=== PATIENT | male | born 1990 | race Caucasian/White ===

== ENCOUNTER → 2021-09-29 13:57 | Outpatient (BNVA) | payer MEDICAID, SELFPAY | PROVIDERS: Visit Provider Nurse Practitioner Family | DX: R19.7 Diarrhea, unspecified (principal); R11.2 Nausea with vomiting, unspecified; R10.9 Unspecified abdominal pain; E66.9 Obesity, unspecified; M54.41 Lumbago with sciatica, right side; M54.42 Lumbago with sciatica, left side; G89.29 Other chronic pain; L03.90 Cellulitis, unspecified; W54.0XXA Bitten by dog, initial encounter; S41.159A Open bite of unspecified upper arm, initial encounter | CPT/HCPCS: 80053; 80061; 82150; 83690 ==

== ENCOUNTER → 2021-10-28 12:08 | Outpatient (BNVA) | payer MEDICAID, SELFPAY | PROVIDERS: Visit Provider Nurse Practitioner Family | DX: J45.909 Unspecified asthma, uncomplicated (principal); R06.02 Shortness of breath | CPT/HCPCS: 71046 ==

== ENCOUNTER → 2021-11-05 13:32 | Outpatient (BNVA) | payer MEDICAID, SELFPAY | PROVIDERS: PCP Nurse Practitioner Family; Referring Provider Nurse Practitioner Family; Visit Provider Anesthesiology Pain Medicine | DX: G89.29 Other chronic pain (principal); M48.062 Spinal stenosis, lumbar region with neurogenic claudication; M54.41 Lumbago with sciatica, right side; M54.42 Lumbago with sciatica, left side; M51.36 Other intervertebral disc degeneration, lumbar region; M47.816 Spondylosis without myelopathy or radiculopathy, lumbar region; M79.605 Pain in left leg; F15.11 Other stimulant abuse, in remission; F17.200 Nicotine dependence, unspecified, uncomplicated | CPT/HCPCS: 99204 ==

== ENCOUNTER 2021-11-18 14:09 | Outpatient (CLI) | payer MEDICAID, SELFPAY ==
--- NOTE | 2021-11-18 14:18 | XR_ITS ---
WS: [id number] XR lumbar spine 2-3V* [id number] REASON FOR EXAM: LBP and sciatica FINDINGS: Decreased lordosis of the lumbar spine. No significant compression deformity or focal vertebral body lesion. Mild narrowing of the L1-L2 and L5-S1 disc spaces. No spondylolysis listhesis or spondylolysis. XR/XR lumbar spine 2-3V* [id number] IMPRESSION: Lumbar spine is relatively straight without the normal lordotic curve. Mild narrowing of the intervertebral disc spaces as above.
--- NOTE | 2021-11-18 14:18 | XR_ITS ---
WS: [id number] XR sacroiliac jts m 3V [id number] REASON FOR EXAM: sciatica FINDINGS: No fracture or focal bone lesion. The sacroiliac joints are well defined. There are no erosions, bridging, or fusion. XR/XR sacroiliac jts m 3V [id number] IMPRESSION: Normal sacroiliac joints.
== END 2021-11-18 14:10 | disposition home or self-care (01) ==
LOC: RAD 14:15
PROVIDERS: PCP Nurse Practitioner Family; Visit Provider Nurse Practitioner Family
DX: M54.41 Lumbago with sciatica, right side (principal); M54.42 Lumbago with sciatica, left side; G89.29 Other chronic pain
CPT/HCPCS: 72100; 72202

== ENCOUNTER 2021-12-22 14:23 | Outpatient (CLI) | payer MEDICAID, SELFPAY ==
--- NOTE | 2021-12-22 14:15 | USCV_ITS ---
Juno Garrett Age: 31 Gender: M : 1990 Exam Date: 12/22/2021 14:31 Ordering Phys: Martha Scott MD ([email or web address]) Technologist: Luba Sims [place] [facility] [place]: SYNCOPE WITH COLLAPSE BP: 176 / 89 HR: 86 Rhythm: Sinus Technical Quality: Good MEASUREMENTS (Male / Female) Normal Values 2D ECHO LV Diastolic Diameter PLAX 5.3 cm 4.2 - 5.9 / 3.9 - 5.3 cm LV Systolic Diameter PLAX 3.1 cm LV Chamber Size 3.3 cm IVS Diastolic Thickness 0.7 cm 0.6 - 1.0 / 0.6 - 0.9 cm IVS Systolic Thickness 1.3 cm LVPW Diastolic Thickness 1.2 cm 0.6 - 1.0 / 0.6 - 0.9 cm LVPW Systolic Thickness 1.6 cm RV Chamber Size 3.5 cm LVOT Diameter 2.1 cm LV Ejection Fraction 2D Teich 71.2 % LV Ejection Fraction MOD 2C 65.2 % LV Ejection Fraction 2C AL 66.7 % LA Diameter 3.3 cm LA Width 3.9 cm LA Height 5.0 cm RA Width 3.1 cm RA Height 3.8 cm Aorta at Sinotubular Diameter 3.1 cm M-MODE Aortic Annulus Diameter 3.1 cm LA Ao Ratio MM 1.4 MV E Point Septal Separation 0.3 cm DOPPLER AV Peak Velocity 111.0 cm/s LVOT Peak Velocity 94.0 cm/s AV Area Cont Eq vti 2.9 cm squared AV Area Cont Eq pk 2.8 cm squared MV Area PHT 4.8 cm squared Mitral E to A Ratio 1.8 MV E' Velocity 49.0 cm/s Mitral E to MV E' Ratio 7.0 Mitral E to LV E' Lateral Ratio 6.9 Mitral E to LV E' Septal Ratio 7.0 TR Peak Velocity 108.3 cm/s TR Peak Gradient 4.7 mmHg TR Mean Velocity 74.8 cm/s TR Mean Gradient 2.6 mmHg TR Velocity Time Integral 21.5 cm TV Peak E Velocity 76.0 cm/s Right Atrial Pressure 3.0 mmHg Pulmonary Artery Systolic Pressu 7.7 mmHg PV Peak Velocity 70.0 cm/s RV Acceleration Time 0.1 s RV Ejection Time 0.0 s FINDINGS Left Ventricle Normal left ventricular size, systolic function and wall thickness, with no regional wall motion abnormalities. Left ventricular ejection fraction is estimated at 60 %. Normal diastolic function. Right Ventricle Normal right ventricular size and systolic function. Right ventricular systolic pressure 7.7 mmHg. Right Atrium Normal right atrial size. Right atrial pressure estimated at 3 mmHg. Left Atrium Normal left atrial size. Mitral Valve Structurally normal mitral valve. No mitral valve stenosis. No mitral valve regurgitation. Aortic Valve Structurally normal trileaflet aortic valve. No aortic valve stenosis. No aortic valve regurgitation. Tricuspid Valve Structurally normal tricuspid valve. No tricuspid valve stenosis. Trace tricuspid valve regurgitation. Pulmonic Valve Structurally normal pulmonic valve. No pulmonary valve stenosis. No significant pulmonary valve regurgitation. Pericardium No pericardial effusion. Aorta Normal size aortic root and proximal ascending aorta. Normal- sized inferior vena cava with normal respiratory variation. CONCLUSIONS 1. Normal left ventricular size, systolic function and wall thickness, with no regional wall motion abnormalities. Left ventricular ejection fraction is estimated at 60 %. Normal diastolic function. 2. No significant valvular abnormality. 3. Normal pulmonary artery pressure. 4. No prior similar studies to compare. Martha Scott MD (Electronically Signed) Final Date: 24 December 2021 12:51 S
== END 2021-12-22 14:24 | disposition home or self-care (01) ==
LOC: RAD 14:25
PROVIDERS: PCP Nurse Practitioner Family; Visit Provider Internal Medicine Cardiovascular Disease
DX: R55 Syncope and collapse (principal)
CPT/HCPCS: 93306

== ENCOUNTER 2022-01-20 08:42 | Day surgery (SDC) | payer MEDICAID, SELFPAY ==
[2022-01-18 12:33] VITALS: BMI 27.8
[2022-01-20 08:55] VITALS: BP 135/87; PULSE 76; RESP 18; TEMP 36.5; O2SAT 98
[2022-01-20] MEDS: sodium chloride 0.9% 1,000 ML 30 ML IV (09:06)
--- NOTE | 2022-01-20 09:18 | ANES.PREANE2 ---
Pre-Anesthetic Assessment Height/Weight: Height 1.8 m Weight 90.718 kg Temp Pulse Resp BP Pulse Ox 97.7 F 76 18 135/87 98 01/20/22 08:55 01/20/22 08:55 01/20/22 08:55 01/20/22 08:55 01/20/22 08:55 Preop Diagnosis: upper gi symptoms Operation Date: 01/20/22 09:15 Proposed Procedures p EGD 59429/r11.2(Not Applicable) - Anuel Stringer MD Was Beta Regina taken within 24 hours: N/A Was Clonidine taken within 24 hours: N/A Last intake: Intake Last Liquid Date 01/20/22 Last Liquid Time 07:45 Last Solid Date 01/19/22 Last Solid Time 23:30 Social Tobacco and No alcohol .25 pack(s) per day MJ use Exam alert and oriented x 3 Airway Submandibular: within normal limits Cervical ROM: within normal limits Mallampati: Class I Dentition: full Comments: Comments: poor dentition History/ROS No significant history except as noted Pulmonary Asthma CV/HEM None reported None reported Hepatic None reported GI Gastroesophageal Reflux Disease (uncontrolled) Metabolic None reported Musc/skel Lower Back Pain and Osteoarthritis/DJD Anesthetic Plan ASA status: 3 Anesthesia: Anesthesia Evaluation and MAC Risk of > 500 ml blood loss (7ml/kg in children): No Medications/Allergies Home Medications Medication Instructions Recorded Confirmed Last Taken Type mupirocin calcium 2 % topical cream 1 applic TOPICAL TID #30 g 09/22/21 01/20/22 01/19/22 Rx celecoxib 100 mg capsule (Celebrex) 100 mg PO BID 30 Days #60 cap 09/29/21 01/20/22 01/19/22 Rx pantoprazole 40 mg tablet,delayed 40 mg PO DAILY 30 Days #30 tab 09/29/21 01/20/22 01/19/22 Rx release (Protonix) levalbuterol tartrate 45 2 inh INHALATION Q6H #15 g 10/28/21 01/20/22 01/19/22 Rx mcg/actuation aerosol inhaler (Xopenex HFA) loperamide 2 mg capsule (Imodium 2 mg PO Q6H PRN #30 cap 10/28/21 01/20/22 01/19/22 Rx A-D) ondansetron HCl 4 mg tablet 4 mg PO Q8H PRN #30 tab 10/28/21 01/20/22 1 Week Ago Rx (Zofran) ~01/13/22 gabapentin 300 mg capsule 300 mg PO TID PRN cap 11/18/21 01/20/22 01/19/22 History docusate sodium 250 mg capsule 250 mg PO DAILY #30 cap 12/09/21 01/20/22 01/19/22 Rx (DSS) Allergies Allergy/AdvReac Type Severity Reaction Status Date / Time tramadol Allergy Mild Unknown Verified 01/20/22 08:56 albuterol Allergy Unknown Verified 01/20/22 08:56 guaifenesin [From Mucinex] Allergy UNKNOWN Verified 01/20/22 08:56 Current Medications Generic Name Dose Route Start Last Admin Trade Name Freq PRN Reason Stop Dose Admin Sodium Chloride 1,000 mls @ 30 mls/hr 01/20/22 09:00 01/20/22 09:06 Sodium Chloride 0.9% IV 01/21/22 08:59 30 mls/hr .Q24H GET Administration PFSH Anesthesia Medical History Chronic diarrhea GERD (gastroesophageal reflux disease) Family History Denies family history of CAD (coronary artery disease) Chronic kidney disease (CKD) Anesthesia complication Bleeding disorder Cancer Social History Smoking and tobacco status: current every day smoker Alcohol intake: current Desire information about alcohol rehabilitation?: No Counseling given: No Data Anesthesia Cardiac Studies: Echocardiogram 12/22/21 Cardiac Event Monitor 11/23/21
--- NOTE | 2022-01-20 09:37 | P.HP_ITS ---
Same Day Surgery H&P Indication for Procedure/HPI DATE OF PROCEDURE: January 20, 2022 CHIEF COMPLAINT/INDICATIONFOR SURGICAL PROCEDURE: egd PREOP DIAGNOSIS: upper gi symptoms PLANNED PROCEDURE: Operation Date: 01/20/22 09:15 Proposed Procedures p EGD 00175/r11.2(Not Applicable) - Anuel Stringer MD Medications/Allergies* Home Medications Medication Instructions Recorded Confirmed Type gabapentin 300 mg capsule 300 mg PO TID PRN cap 11/18/21 01/20/22 History Allergies/Adverse Reactions Allergy/AdvReac Type Severity Reaction Status Date / Time tramadol Allergy Mild Unknown Verified 01/20/22 08:56 albuterol Allergy Unknown Verified 01/20/22 08:56 guaifenesin [From Mucinex] Allergy UNKNOWN Verified 01/20/22 08:56 Current Medications: Generic Name Dose Route Start Last Admin Trade Name Freq PRN Reason Stop Dose Admin Sodium Chloride 1,000 mls @ 30 mls/hr 01/20/22 09:00 01/20/22 09:06 Sodium Chloride 0.9% IV 01/21/22 08:59 30 mls/hr .Q24H GET Administration Pertinent History/Comorbid Conditions* Medical History (Updated 12/15/21 @ 14:41 by Anuel Stringer MD) Chronic diarrhea GERD (gastroesophageal reflux disease) Family History (Updated 11/05/21 @ 13:47 by Minerva Prescott) Denies family history of CAD (coronary artery disease) Chronic kidney disease (CKD) Anesthesia complication Bleeding disorder Cancer Social History Smoking and tobacco status: current every day smoker Alcohol intake: current Desire information about alcohol rehabilitation?: No Counseling given: No Pertinent Exam Findings alert, oriented x 3 and regular rate & rhythm Recommendations Surgery/Procedure today Coding Level of Care Code Acute Esol Teacher Assistant for Ericag Yin
--- NOTE | 2022-01-20 09:58 | ANE.PACU2 ---
Inpatient post-anesthesia follow up: Airway intact: Yes Vital signs: Temperature 97.7 F Pulse Rate 76 Respiratory Rate 18 Blood Pressure 135/87 Pulse Oximetry 98 Oxygen Delivery Me thod Oxygen Flow Rate Fraction of Inspir ed Oxygen Hydration adequate: Yes Nausea and vomiting: No Pain level: 1 Mental status: Baseline
[2022-01-20 10:14] VITALS: BP 134/88; PULSE 69; RESP 18; TEMP 36.5; O2SAT 98
== END 2022-01-20 10:16 | disposition home or self-care (01) ==
PROVIDERS: PCP Nurse Practitioner Family; Visit Provider Surgery
PROC: 0DJ08ZZ Inspection of Upper Intestinal Tract, Via Natural or Artificial Opening Endoscopic (ICD-10-PCS; CPT 43235; principal; 2022-01-20 09:15)
DX: R11.2 Nausea with vomiting, unspecified (principal); K29.70 Gastritis, unspecified, without bleeding; F17.210 Nicotine dependence, cigarettes, uncomplicated; K21.9 Gastro-esophageal reflux disease without esophagitis; M19.90 Unspecified osteoarthritis, unspecified site
CPT/HCPCS: 43239; 88305; J2704; J3010; J7030

== ENCOUNTER → 2022-02-01 10:43 | Outpatient (BNVA) | payer MEDICAID, SELFPAY | PROVIDERS: PCP Nurse Practitioner Family; Visit Provider Surgery | DX: R10.9 Unspecified abdominal pain (principal); F17.210 Nicotine dependence, cigarettes, uncomplicated | CPT/HCPCS: 71046; 80053; 83880; 84443; 85025; 99212 ==

== ENCOUNTER → 2023-11-17 15:12 | Outpatient (BNVA) | payer MEDICAID, SELFPAY | PROVIDERS: PCP Nurse Practitioner Family; Visit Provider Nurse Practitioner Family | DX: M79.602 Pain in left arm (principal) | CPT/HCPCS: 73090 ==

== ENCOUNTER → 2024-06-06 15:05 | Outpatient (BNVA) | payer MEDICAID, SELFPAY | PROVIDERS: PCP Nurse Practitioner Family; Visit Provider Nurse Practitioner Family | DX: R10.11 Right upper quadrant pain (principal) | CPT/HCPCS: 80053; 80061; 82150; 83690; 85025 ==

== ENCOUNTER 2024-08-02 05:52 | Day surgery (SDC) | payer MEDICAID, SELFPAY ==
[2024-08-02] VITALS (14 sets, daily range): BP systolic 130–158; BP diastolic 81–109; PULSE 63–85; RESP 16–20; TEMP 36.4–37.1; O2SAT 96–100; BMI 33.2
--- NOTE | 2024-08-02 06:03 | ANES.PREANE2 ---
Pre-Anesthetic Assessment Height/Weight: Height 5 ft 7 in Preop Diagnosis: Biliary colic Operation Date: 08/02/24 07:00 Proposed Procedures p Laparoscopic Cholecystectomy 79648, K80.50(Not Applicable) - Issac Moore DO Was Beta Regina taken within 24 hours: N/A Was Clonidine taken within 24 hours: N/A Last Intake: 21:00 Social No alcohol and No tobacco Smokes marijuana, prior alcoholic Exam alert, oriented x 3, clear to auscultation bilaterally and regular rate & rhythm Airway Submandibular: within normal limits Cervical ROM: within normal limits Mallampati: Class III Dentition: full and other (Denies any missing teeth) Anesthetic Plan ASA status: 3 Anesthesia: General Other: Patient states that he woke up early during general anesthesia NPO since yesterday evening History of GERD, diet controlled Patient has a very significant drug abuse history, admits to prior use of methamphetamine, cocaine, 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, clean for 10 years Smokes marijuana every hour during the day History of exercise-induced asthma, no inhalers Labs 06/06/2024 were reviewed Echo 2021 showing EF 60% Preop BP 138/91 Plan for GETA Medications/Allergies Home Medications Medication Instructions Recorded Confirmed Last Taken Type MEDICAL MARIJUANA CARD inhalation 03/05/24 07/26/24 Unknown History Allergies Allergy/AdvReac Type Severity Reaction Status Date / Time tramadol Allergy Mild Unknown Verified 07/26/24 09:44 albuterol Allergy Unknown Verified 07/26/24 09:44 guaifenesin [From Mucinex] Allergy UNKNOWN Verified 07/26/24 09:44 [facility] Anesthesia Medical History Chronic diarrhea GERD (gastroesophageal reflux disease) Family History Denies family history of CAD (coronary artery disease) Chronic kidney disease (CKD) Anesthesia complication Bleeding disorder Cancer Social History Smoking and tobacco/nicotine status: current every day tobacco/nicotine user cigarettes Packs smoked per day: 0.5 Years cigarettes smoked: 15 Quit status (tobacco/nicotine): not considering quitting Second hand smoke exposure: No Alcohol intake: current Substance/Drug Use: current Substance/Drug use frequency: daily Other substance/drug use details: has medical card Adopted: No Lives independently: Yes Household members: significant other Marital status: Single service: No Current occupational status: employed Current gender identity: Male Special lisa needs: No Data Anesthesia Cardiac Studies: Echocardiogram 12/22/21 Cardiac Event Monitor 11/23/21
[2024-08-02] MEDS: famotidine 20 mg/2 mL INJ IVP (06:38)
[2024-08-02] MEDS: sodium chloride 0.9% 1,000 ML 30 ML IV (06:46)
--- NOTE | 2024-08-02 06:56 | W.PM.OPSUD ---
Surgery/Procedure H&P Update DATE OF PROCEDURE: August 02, 2024 DATE H&P PERFORMED: 07/26/24 H&P UPDATE INFORMATION: I have reviewed H&P completed within last 30 days, I have examined patient prior to procedure and No changes to prior documentation PREOP DIAGNOSIS: Biliary colic PLANNED PROCEDURE: Operation Date: 08/02/24 07:00 Proposed Procedures p Laparoscopic Cholecystectomy 37833, K80.50(Not Applicable) - Issac Moore DO
[2024-08-02] MEDS: ceFAZolin 2,000 mg SDV 2000 MG IVP (07:00)
[2024-08-02] MEDS: lidocaine-epi 2% PF 1:200,000 20 mL SDV 10 ML INJECTION (07:29)
--- NOTE | 2024-08-02 07:42 | P.OP_ITS ---
Operative Report Date of procedure: August 02, 2024 Surgeon: Issac Moore DO Brief History: This is a very pleasant 33-year-old gentleman who presented to my office with abdominal pain. He was diagnosed with biliary colic. Laparoscopic cholecystectomy was indicated. The risks and benefits were explained and documented. Procedure: Preoperative diagnosis: Biliary colic Postoperative diagnosis: Same Procedure performed: Laparoscopic cholecystectomy Surgeon: Dr. Issac Moore DO Estimated blood loss: 5 mL Specimens: Gallbladder to pathology Complications: None apparent Description of procedure: Patient was wheeled into the operative room and placed on the OR table in a supine position. Abdomen was inspected prepped and draped in usual sterile fashion. Time-out was performed and all present were in agreement. A 15 blade scalp was used to make a stab incision in the left upper quadrant and intra- abdominal insufflation was achieved using a Veress needle. After localizing the tissue incisions were made and a 5 millimeter trocar was placed into the umbilicus as well as 2 in the right upper quadrant. A 12 millimeter trocar was placed in the epigastrium. Gallbladder was grasped and elevated. The triangle of Calot was carefully dissected using blunt dissection and electrocautery until the triangle of Calot clearly identified. The cystic duct was clipped proximally and double clipped distally. The duct was then ligated proximally. The cystic artery was doubly clipped and ligated. The gallbladder was then removed from the liver bed using electrocautery. The gallbladder was removed from the abdomen using an Endo-Catch bag through the epigastric incision. The liver bed was inspected and no bleeding was seen. The abdomen was irrigated and suctioned. All ports removed. Skin was washed and dried. Incisions were closed with 4-0 Monocryl in a subcuticular interrupted fashion. Skin glue was applied. Patient tolerated the procedure well.
[2024-08-02] MEDS: ondansetron 2 mg/ML SDV 2 mL 4 MG IVP (08:18)
[2024-08-02] MEDS: ketorolac 30 mg/mL INJ IVP (08:20)
[2024-08-02] MEDS: fentaNYL 50 mcg/mL INJ 2mL IVP (08:28)
[2024-08-02] MEDS: acetaminophen 1,000 MG/100 ML PIGGYBACK 400 MG IV (09:20)
--- NOTE | 2024-08-02 09:41 | ANES.PREANE2 ---
Pre-Anesthetic Assessment Height/Weight: Height 5 ft 9 in Weight 225 lb Temp Pulse Resp BP Pulse Ox O2 Del Method O2 Flow Rate 98.0 F 72 17 136/81 99 Room Air 6 08/02/24 09:35 08/02/24 09:35 08/02/24 09:35 08/02/24 09:35 08/02/24 09:35 08/02/24 09:35 08/02/24 08:00 Preop Diagnosis: Biliary colic Operation Date: 08/02/24 07:00 Proposed Procedures p Laparoscopic Cholecystectomy 24019, K80.50(Not Applicable) - Issac Moore DO Last intake: Intake Last Liquid Date 08/01/24 Last Liquid Time 21:00 Last Solid Date 08/01/24 Last Solid Time 21:00 Medications/Allergies Home Medications Medication Instructions Recorded Confirmed Last Taken Type MEDICAL MARIJUANA CARD inhalation 03/05/24 07/26/24 Unknown History Allergies Allergy/AdvReac Type Severity Reaction Status Date / Time tramadol Allergy Mild Unknown Verified 07/26/24 09:44 albuterol Allergy Unknown Verified 07/26/24 09:44 guaifenesin [From Mucinex] Allergy UNKNOWN Verified 07/26/24 09:44 [facility] Anesthesia Medical History Chronic diarrhea GERD (gastroesophageal reflux disease) Family History Denies family history of CAD (coronary artery disease) Chronic kidney disease (CKD) Anesthesia complication Bleeding disorder Cancer Social History Smoking and tobacco/nicotine status: current every day tobacco/nicotine user cigarettes Packs smoked per day: 0.5 Years cigarettes smoked: 15 Quit status (tobacco/nicotine): not considering quitting Second hand smoke exposure: No Alcohol intake: current Substance/Drug Use: current Substance/Drug use frequency: daily Other substance/drug use details: has medical card Adopted: No Lives independently: Yes Household members: significant other Marital status: Single service: No Current occupational status: employed Current gender identity: Male Special lisa needs: No Data Anesthesia Cardiac Studies: Echocardiogram 12/22/21 Cardiac Event Monitor 11/23/21
--- NOTE | 2024-08-02 09:41 | ANE.PACU2 ---
Inpatient post-anesthesia follow up: Airway intact: Yes Vital signs: Temperature 98.0 F Pulse Rate 72 Respiratory Rate 17 Blood Pressure 136/81 Pulse Oximetry 99 Oxygen Delivery Me thod Room Air Oxygen Flow Rate 6 Fraction of Inspir ed Oxygen Hydration adequate: Yes Nausea and vomiting: No Pain level: 3 Mental status: Baseline
== END 2024-08-02 09:41 | disposition home or self-care (01) ==
PROVIDERS: Visit Provider Surgery
PROC: 0FT44ZZ Resection of Gallbladder, Percutaneous Endoscopic Approach (ICD-10-PCS; CPT 47562; principal; 2024-08-02 07:00)
DX: K80.10 Calculus of gallbladder with chronic cholecystitis without obstruction (principal); K21.9 Gastro-esophageal reflux disease without esophagitis; F15.11 Other stimulant abuse, in remission; F17.210 Nicotine dependence, cigarettes, uncomplicated
CPT/HCPCS: 47562; 88304; J0131; J0330; J0690; J1100; J1885; J2250; J2405; J2704; J3010; J3490; J7030

== ENCOUNTER → 2025-09-05 14:53 | Outpatient (BNVA) | payer MEDICAID, SELFPAY | PROVIDERS: Visit Provider Nurse Practitioner Family | DX: G89.29 Other chronic pain (principal) | CPT/HCPCS: 80053; 80061; 84443; 85025 ==